=== PATIENT | male | born 1995 | race Caucasian/White ===

== ENCOUNTER 2023-07-28 07:33 | Emergency (ER) | payer OTHER ==
[~2023-07-28] VITALS: Ht 182 cm; Wt 90.0 kg
[2023-07-28] MEDS ORDERED: ACETAMINOPHEN 500 MG TABLET PO ONE (08:00)
[2023-07-28] MEDS ORDERED: ONDANSETRON 4 MG ORAL DISSOLVE TABLET PO STA (08:00)
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
[2023-07-28] MEDS ORDERED: ONDA8TAB13 SL (08:45)
[2023-07-28 08:46] VITALS: BP 171/93
== END 2023-07-28 08:45 | disposition home or self-care (01) ==
LOC: ER 07:37
DX: S00.03XA Contusion of scalp, initial encounter (principal); S50.812A Abrasion of left forearm, initial encounter; R11.2 Nausea with vomiting, unspecified; F17.210 Nicotine dependence, cigarettes, uncomplicated; V43.52XA Car driver injured in collision with other type car in traffic accident, initial encounter; Y92.410 Unspecified street and highway as the place of occurrence of the external cause
CPT/HCPCS: 70450; 73090